=== PATIENT | female | born 1960 | race Two or more races ===

== ENCOUNTER 2017-03-20 18:40 | Emergency (ER) | payer MEDICAID ==
[~2017-03-20] VITALS: Ht 170.2 cm; Wt 63.5 kg
[2017-03-20 18:43] VITALS: BP 124/71
== END 2017-03-20 19:27 | disposition home or self-care (01) ==
LOC: ER 18:42
DX: T65.893A Toxic effect of other specified substances, assault, initial encounter (principal); Y92.89 Other specified places as the place of occurrence of the external cause
CPT/HCPCS: 99283; A4606; Z7610